=== PATIENT | female | born 2000 | race Two or more races ===

== ENCOUNTER 2019-07-03 11:33 | Emergency (ER) | payer BC ==
[~2019-07-03] VITALS: Ht 152.4 cm; Wt 58.6 kg
--- NOTE | 2019-07-03 12:10 | NUR ---
[employer]: PT AMBULATORY WITH STEADY GAIT TO ROOM FROM LOBBY AT THIS TIME. MOTHER WITH PT.
[2019-07-03 12:35] LABS: BASOPHILS # (AUTO) 0.02 x10^3/uL (0-0.3); BASOPHILS % (AUTO) 0 % (0-1); EOSINOPHILS # (AUTO) 0.03 x10^3/uL (0-0.8); EOSINOPHILS % (AUTO) 0 % (1-7); LYMPHOCYTES # (AUTO) 1.71 x10^3/uL (1-6.1); LYMPHOCYTES % (AUTO) 27 % (22-44); MD NO; MEAN CORPUSCULAR HEMOGLOBIN 30.2 pg (27.0-34.8); MEAN CORPUSCULAR HGB CONC 33.2 g/dL (32.4-35.8); MEAN CORPUSCULAR VOLUME 91.1 fL (80-100); MEAN PLATELET VOLUME 9.3 fL (7.4-10.4); MONOCYTES # (AUTO) 0.41 x10^3/uL (0-1.4); MONOCYTES % (AUTO) 6 % (2-9); NEUTROPHILS # (AUTO) 4.25 x10^3/uL (1.8-8.0); NEUTROPHILS % (AUTO) 66 % (42-75); PLATELET COUNT 300 x10^3/uL (130-400); RED BLOOD COUNT 4.21 x10^6/uL (3.82-5.3); RED CELL DISTRIBUTION WIDTH 13.6 % (9.6-15.2)
[2019-07-03 12:42] LABS: ALBUMIN 3.7 g/dL (3.4-5.0); CALCIUM 8.6 mg/dL (8.5-10.1); CREATININE 0.77 mg/dL (0.55-1.02)
[2019-07-03] MEDS ORDERED: LORazepam 1MG TABLET ONE (12:46)
[2019-07-03 12:55] LABS: ANION GAP 6 mmol/L (5-15); CHLORIDE 110 mmol/L (98-107)
[2019-07-03 12:57] LABS: SALICYLATE LEVEL < 1.7 mg/dL (2.8-20.0)
[2019-07-03] MEDS ORDERED: LORazepam 1MG TABLET PO ONE (13:00)
--- NOTE | 2019-07-03 13:12 | NUR ---
MEDICATED PER MAR FOR ANXIETY
[2019-07-03 13:43] LABS: AMPHETAMINE SCREEN, URINE Negative (Negative); BARBITURATE SCREEN, URINE Negative (Negative); BENZODIAZEPINE SCREEN, URINE Negative (Negative); CANNABINOID SCREEN, URINE Positive (Negative); COCAINE SCREEN, URINE Negative (Negative); METHADONE SCREEN, URINE Negative (Negative); OPIATE SCREEN, URINE Negative (Negative)
--- NOTE | 2019-07-03 14:13 | NUR ---
PT STATES NOT FEELING ANXIOUS SINCE MEDICATED FOR SAME. MOTHER AT BEDSIDE. AWAITING TELE PSYCH
--- NOTE | 2019-07-03 15:44 | NUR ---
TELEPSYCH CONSULT COMPLETED AND AWAITING FAX WITH RECOMMENDATIONS.
[2019-07-03 16:29] VITALS: BP 104/64
== END 2019-07-03 16:31 | disposition home or self-care (01) ==
LOC: ED 14:49
DX: F32.0 Major depressive disorder, single episode, mild (principal); F41.9 Anxiety disorder, unspecified; Z79.899 Other long term (current) drug therapy
CPT/HCPCS: 36415; 80048; 80307; 82040; 84703; 85025; 99284